=== PATIENT | female | born 1955 | race Caucasian/White ===

== ENCOUNTER → 2017-05-25 | Outpatient (CLI) | payer OTHER ==
--- NOTE | ~2017-05-25 | MY30 ---
[facility] A Service of [facility] RADIOLOGY TEXT RESULTS PATIENT: ADDIE CHILDS LOCATION: [facility] : 57 UNIT #: [id number] AGE: [address]: Generic Doctor NOT IN SYSTEM SEX: F ORDER DR: [id number] [address] [address] [id number] O MR#: [id number] Acc #: [id number] NAME: ADDIE CHILDS : 1955 SEX: F STUDY DATE/TIME: 05/25/2017 8:55 UNIT: [facility] ROOM: STUDY DESCRIPTION: MY SCREEN JUVENTINO BILAT DIGITAL Attending Physician: Generic Doctor Not In System Referring Physician: Generic Doctor Not In System Ordering Physician: Physician Non-Staff Primary Care Physician: Le Vazquez Aprn MEDICAL IMAGING REPORT This report is preliminary unless electronic signature is present. EXAM Bilateral digital screening mammogram with CAD, 05/25/2017 HISTORY 61-year-old female with family history of breast cancer in maternal grandmother. 20 pounds weight loss since last year. No personal history of breast cancer or current complaints. COMPARISON Bilateral screening mammogram 05/23/2016, 05/14/2015, 05/11/2014. FINDINGS CC and MLO views were obtained of each breast utilizing digital technique and reviewed with an FDA-approved CAD device. Heterogeneously dense fibroglandular tissue is present bilaterally, which can limit sensitivity of mammography. Multiple round markers were placed over each breast denoting skin moles. The parenchymal pattern appears stable. No new or developing nodule, architectural distortion or clustered microcalcification is seen. There is no abnormal skin thickening or nipple retraction. IMPRESSION Routine bilateral screening mammogram is recommended in one year. Patients over the age of 40 are entered into a reminder system with target due date for the next mammogram. A result letter will also be sent to the patient. BIRADS: 2 Benign Finding Dictated by... [facility] A Service of [facility] RADIOLOGY TEXT RESULTS PATIENT: ADDIE CHILDS LOCATION: [facility] : 57 UNIT #: [id number] AGE: [address]: Generic Doctor NOT IN SYSTEM SEX: F ORDER DR: Ashley Galeano M.D. THIS IS AN ELECTRONICALLY VERIFIED REPORT Ashley Galeano M.D. at 05/26/2017 9:50 AM Sangeetha TD: 05/25/2017 16:52 JOB #: [id number] MEDICAL IMAGING REPORT Page 1 of 1
== END | disposition home or self-care (01) ==
LOC: SMAM 08:00
DX: Z12.31 Encounter for screening mammogram for malignant neoplasm of breast (principal); Z80.3 Family history of malignant neoplasm of breast
CPT/HCPCS: G0202